=== PATIENT | female | born 1950 | race Caucasian/White ===

== ENCOUNTER 2017-10-12 17:19 | Inpatient (IN) | payer OTHER, BC ==
[~2017-10-12] VITALS: Ht 167.6 cm; Wt 91.6 kg
[~2017-10-12 17:19] MED LIST: CALCIUM +D & M1 EAC1 PO; CREON DR 12,001 EAC1 PO; DILAUDID4 MG PO; FERROUS SULFAT325 MG PO; FISH OIL SOFTG1 EACH PO; HYDROCHLOROTHIA25 MG PO; LIPITOR10 MG PO; LISINOPRIL30 MG PO; MULTI VITAMIN1 EACH PO; PERCOCET 5/31 TABLET PO; PREVACID30 MG PO; PRINIVIL10 MG PO; TOPROL XL50 MG PO; TOPROL XL6.25 MG PO; VERELAN 180 MG180 MG PO; VITAMIN D2000 INTUN PO; ZOFRAN ODT8 MG PO
[2017-10-12 18:05] LABS: HEMATOCRIT 39.8 % (36.0-46.0); MCH 31.3 PG (29.0-34.0); MCHC 32.9 G/DL (30.0-36.0); MCV 95.2 FL (83-99); MEAN PLAT.VOLUME 10.4 uM^3 (9.5-12.4); PLATELET COUNT 185 K/uL (156-360); RBC DIS.WIDTH-CV 13.1 % (11.8-14.6); RBC DIS.WIDTH-SD 45.6 % (39-53); RED BLOOD COUNT 4.18 M/uL (3.80-5.20); WHITE BLOOD COUNT 6.5 K/uL (4.1-10.2)
[2017-10-12 18:14] LABS: ADD MIUA? YES; BILIRUBIN NEGATIVE; BLOOD SMALL; COLOR AMBER ((YELLOW)); GLUCOSE (STRIP) NEGATIVE; KETONES 80; LEUKOCYTES SMALL; NITRITE NEGATIVE; PROTEIN (STRIP) 30; SPECIFIC GRAVITY 1.032 (1.000-1.030)
[2017-10-12 18:16] LABS: CHLORIDE 106 mEq/L (99-109); POTASSIUM 3.7 mEq/L (3.7-5.4); SODIUM 143 mEq/L (136-147)
[2017-10-12 18:18] LABS: GLUCOSE 98 mg/dL (70-99)
[2017-10-12 18:19] LABS: ANION GAP 11 MEQ/L (2-14)
[2017-10-12 18:20] LABS: TOTAL BILIRUBIN 0.5 mg/dL (0.0-1.0)
[2017-10-12 18:21] LABS: ALKALINE PHOSPHATASE 119 IU/L (3-129)
[2017-10-12 18:22] LABS: GFR ESTIMATE (CALCULATED) > 59 mL/min/
[2017-10-12 18:23] LABS: UREA NITROGEN (BUN) 11 mg/dL (9-23)
[2017-10-12 18:25] LABS: LIPASE 464 U/L (1.0-51.0)
[2017-10-12 19:11] LABS: EPITHELIAL CELLS 1+ /HPF; MUCUS 3+ /LPF
[2017-10-12 19:12] LABS: BACTERIA 1+ /HPF; CALCIUM OXALATE CRYSTALS 3+ /HPF; CASTS PRESENT /LPF; CRYSTALS PRESENT; HYALINE CASTS 0-5 /LPF; UCUL ADDED? YES
[2017-10-12] MEDS ORDERED: OXYCODONE-APAP1 EAC6 PO (22:10)
[2017-10-12] MEDS ORDERED: MINOCYCLINE HC100 MG PO (22:12)
[2017-10-12] MEDS ORDERED: NORTRIPTYLINE H10 MG PO (22:12)
[2017-10-12] MEDS ORDERED: ONDANSETRON HCL4 MG PO (22:13)
[2017-10-12] MEDS ORDERED: ATORVASTATIN CA10 MG PO (22:14)
[2017-10-12] MEDS ORDERED: LISINOPRIL20 MG PO (22:14)
[2017-10-12] MEDS ORDERED: LANSOPRAZOLE30 MG PO (22:15)
[2017-10-12] MEDS ORDERED: METOPROLOL SUCC50 MG PO (22:17)
[2017-10-12] MEDS ORDERED: BACLOFEN20 MG PO (22:17)
[2017-10-12 23:24] VITALS: BP 170/81
[2017-10-13 03:45] VITALS: BP 173/78
[2017-10-13 06:57] LABS: EOSINOPHIL (%) 0.6 % (0-5); HEMATOCRIT 38.9 % (36.0-46.0); IMMATURE GRANULOCYTE (%) 0.5 % (0.0-0.7); INSTRUMENT ABS NEUTROPHIL CT 4.2 K/uL; LYMPHOCYTE COUNT 1.9 K/uL (1.0-2.8); MCH 30.6 PG (29.0-34.0); MCHC 32.1 G/DL (30.0-36.0); MCV 95.1 FL (83-99); MEAN PLAT.VOLUME 10.2 uM^3 (9.5-12.4); MONOCYTE (%) 5.9 % (3-12); MONOCYTE COUNT 0.4 K/uL (0-0.8); NEUTROPHIL (%) 63.6 % (45-76); NEUTROPHIL COUNT 4.2 K/uL (1.8-6.4); PLATELET COUNT 183 K/uL (156-360); RBC DIS.WIDTH-CV 13.2 % (11.8-14.6); RBC DIS.WIDTH-SD 46.7 % (39-53); RED BLOOD COUNT 4.09 M/uL (3.80-5.20); WHITE BLOOD COUNT 6.6 K/uL (4.1-10.2)
[2017-10-13 07:40] VITALS: BP 166/86
[2017-10-13 08:02] LABS: ANION GAP 11 MEQ/L (2-14); CHLORIDE 108 MEQ/L (99-109); GFR ESTIMATE (CALCULATED) > 59 mL/min/; GLUCOSE 98 mg/dL (70-99); POTASSIUM 3.6 MEQ/L (3.7-5.4); SAMPLE HEMOLYSIS CHECK 0; SAMPLE ICTERIC CHECK 0; SAMPLE LIPEMIA CHECK 0; SODIUM 142 MEQ/L (136-147); UREA NITROGEN (BUN) 8 mg/dL (9-23)
[2017-10-13 08:18] LABS: AMYLASE 91 IU/L (1-118); LIPASE 189 U/L (1.0-51.0)
[2017-10-13 13:03] VITALS: BP 149/72
[2017-10-13 16:00] VITALS: BP 180/85
[2017-10-13 19:55] VITALS: BP 159/72
[2017-10-13 23:58] VITALS: BP 170/76
[2017-10-14 03:58] VITALS: BP 135/74
[2017-10-14 06:58] LABS: HEMATOCRIT 40.8 % (36.0-46.0); MCH 30.5 PG (29.0-34.0); MCHC 32.1 G/DL (30.0-36.0); MCV 94.9 FL (83-99); MEAN PLAT.VOLUME 10.3 uM^3 (9.5-12.4); PLATELET COUNT 171 K/uL (156-360); RBC DIS.WIDTH-CV 13.5 % (11.8-14.6)
[2017-10-14 07:25] LABS: ALKALINE PHOSPHATASE 102 IU/L (3-129); AMYLASE 34 IU/L (1-118); ANION GAP 10 MEQ/L (2-14); CHLORIDE 110 MEQ/L (99-109); DIRECT BILIRUBIN 0.1 mg/dL (0.0-0.3); GFR ESTIMATE (CALCULATED) > 59 mL/min/; GLUCOSE 109 mg/dL (70-99); LIPASE 41 U/L (1.0-51.0); POTASSIUM 4.1 MEQ/L (3.7-5.4); SAMPLE HEMOLYSIS CHECK 1; SAMPLE ICTERIC CHECK 0; SAMPLE LIPEMIA CHECK 0; SODIUM 141 MEQ/L (136-147); TOTAL BILIRUBIN 0.6 MG/DL (0.0-1.0); UREA NITROGEN (BUN) 6 mg/dL (9-23)
[2017-10-14 07:49] VITALS: BP 152/81
[2017-10-14 11:23] VITALS: BP 126/70
== END 2017-10-14 15:04 | disposition home or self-care (01) | DRG 439 ==
LOC: EME 17:19 → EDOF 21:06 → 2EAST 21:06 → ENRESERV 21:07 → 2EASTP 22:50 → ENRESERV 10-13 23:55 → 2EAST 10-13 23:58
PROVIDERS: Hospitalist; Internal Medicine Gastroenterology
DX: K85.00 Idiopathic acute pancreatitis without necrosis or infection (principal); N39.0 Urinary tract infection, site not specified; J98.11 Atelectasis; E78.5 Hyperlipidemia, unspecified; I10 Essential (primary) hypertension; K21.9 Gastro-esophageal reflux disease without esophagitis; F41.9 Anxiety disorder, unspecified; D64.9 Anemia, unspecified; R91.8 Other nonspecific abnormal finding of lung field; Z90.49 Acquired absence of other specified parts of digestive tract; Z88.5 Allergy status to narcotic agent; Z80.0 Family history of malignant neoplasm of digestive organs
CPT/HCPCS: 71250; 74177; 80048; 80053; 80076; 81003; 82150; 83690; 85025; 85027; 87086; 99281; 99285; J0360; J0696; J1170; J1650; J1885; J2270; J2405; J3010; J7030; S0028